=== PATIENT | female | born 1985 | race Caucasian/White ===

== ENCOUNTER 2021-12-31 20:02 | Emergency (ER) | payer OTHER, SELFPAY ==
[2021-12-31 20:34] VITALS: BP 153/78; PULSE 85; RESP 18; TEMP 36.7; O2SAT 99; BMI 36.2
--- NOTE | 2021-12-31 21:34 | ED_ITS ---
HPI - Abdominal Pain General Time Seen by Provider: 21:20 Date Seen: 12/31/21 Chief Complaint: Abdominal Pain Stated Complaint: Pancreatitis Time Seen by Provider: 12/31/21 20:37 Source: patient, family, RN notes reviewed and old records reviewed Mode of arrival: ambulatory Limitations: no limitations History of Present Illness HPI narrative: Patient is a very pleasant 36-year-old female who is 4 years status post gallbladder removal who comes to the emergency room with 3 episodes of abdominal pain very similar to her gallbladder attacks. Patient states that in the past 3 4 days she has had 4 gallbladder attacks 2 today. She knows she does not have a gallbladder but she states that is what it feels like. She has noticed increasing diarrhea but possibly over a month. She does not get a fever when this happens. She has not noticed any blood in her stool. She does state that when she had her gallbladder removed it was 3 weeks after delivering a child. She had had repeated gallbladder issues and known stones during the the last 2 trimesters of her . She notes that she did come in with a gallbladder attack and was sent to [facility] because she also needed an ERCP but an ERCP at that time noted no blockage. Patient has not experienced any unusual weight loss, fever. When this happens discomfort associated with vomiting and nausea and pallor persists for 20-30 minutes. She has tried to change her diet to reflect less fat but today she even had an attack with oatmeal. Related Data Previous Rx's Medication Instructions Recorded norgestimate 0.25 mg-ethinyl 1 tab PO QDAY #84 tabs 10/25/21 estradiol 35 mcg tablet (Estarylla) Allergies Allergy/AdvReac Type Severity Reaction Status Date / Time No Known Drug Allergies Allergy Verified 12/31/21 20:36 Review of Systems Status of ROS Reports: 10 or more systems reviewed and unremarkable except as noted in History and below Const Denies: fever, chills or fatigue Eyes Denies: change in vision ENMT Denies: throat pain, neck pain or difficulty swallowing Cardio Denies: chest pain or shortness of breath with exertion Resp Denies: shortness of breath or cough GI Denies: difficulty swallowing Denies: painful urination Musculo Denies: neck pain Neuro Denies: headache Psych Denies: anxiety Endo Denies: excessive urination or fatigue Exam Narrative: Exam Narrative: Tar is a very pleasant 36-year-old female in no acute distress. Face symmetrical, mentation normal. Neck is supple Heart with regular rate and rhythm and lungs are clear to auscultation. No CVA tenderness percussion Some slight tenderness noted in the right upper quadrant. No masses are palpated. Bowel sounds are present. Lower extremities without edema. Const: Vital Signs, click to edit/add: Vital Signs - 24 hr 12/31/21 20:34 Temperature 98.0 F Pulse Rate [Right Pulse Oximeter] 85 Respiratory Rate 18 Blood Pressure [Ri ght Upper Arm] 153/78 H Pulse Oximetry 99 Oxygen Delivery Me thod Room Air Documenting provider has reviewed patient's vital signs: yes Course Course Hospital Course: Patient will have IV placed Toradol, Zofran, and normal saline will be given. From intense purposes they feel like she is much better at this point but she still has some mild residual discomfort and nausea. CBC, comprehensive panel, CRP, lipase, amylase, urinalysis will be checked. Vital Signs Vital signs: Initial Vital Signs Temperature 98.0 F 12/31/21 20:34 Temperature Source Temporal Artery Scan 12/31/21 20:34 Pulse Rate 85 12/31/21 20:34 Respiratory Rate 18 12/31/21 20:34 Blood Pressure 153/78 H 12/31/21 20:34 Blood Pressure Mean 103 12/31/21 20:34 Blood Pressure Position Sitting 12/31/21 20:34 Pulse Oximetry 99 12/31/21 20:34 Oxygen Delivery Method 12/31/21 20:34 Vital Signs Temperature 98.0 F 12/31/21 20:34 Pulse Rate 85 12/31/21 20:34 Respiratory Rate 18 12/31/21 20:34 Blood Pressure 153/78 H 12/31/21 20:34 Pulse Oximetry 99 12/31/21 20:34 Oxygen Delivery Method 12/31/21 20:34 Temperature 98.0 F 12/31/21 20:34 Pulse Rate 85 12/31/21 20:34 Respiratory Rate 18 12/31/21 20:34 Blood Pressure 153/78 H 12/31/21 20:34 Pulse Oximetry 99 12/31/21 20:34 Oxygen Delivery Method 12/31/21 20:34 MDM - Abdominal Pain MDM Narrative Medical decision making narrative: 1. Abdominal pain-this could possibly be gastritis versus colitis. Patient does describe increasing diarrhea over quite some time. We talked about the possibility of colitis being viral verses autoimmune versus bacterial. Patient had near complete resolution of her symptoms prior to coming here. Toradol and Zofran have improved it further. In fact she is somewhat hungry right now. Recommend trial of gluten free diet as her sister has a gluten intolerance. Recommend pushing fluids as much as possible. I would avoid dairy at this time as well as any fatty foods. I would not subject patient to a CT at this time given her reassuring vital signs, exam as well as labs which include negative or normal white count and normal CRP. 2. Mild elevation of ALT and AST.-likely secondary to fatty liver. 3. Disposition-patient will be discharged home. I would like her to continue omeprazole 40 mg daily for 2 weeks. First dose given in the ED tonight. Will also give her Zofran 4 mg ODT to be used as needed for nausea. 10. Via [facility] P[facility] meds. Return to the ER seek medical attention for blood in stool worsening pain onset of fever for the onset of new symptoms such as abdominal bloating. Patient voices understanding. Note [place] and needed to clean it. is not sick at this time. No evidence of worms in stool. Medical Records Attestation: I reviewed the patient's medical records. Lab Data Attestation: I reviewed the patient's lab results. Labs: Lab Results 12/31/21 12/31/21 12/31/21 Range/Units 21:51 21:51 21:51 WBC 9.69 (4.50-11.00) K/uL RBC 3.94 L (4.00-5.20) m/uL Hgb 12.0 (12.0-16.0) gm/dL Hct 35.1 (33.0-51.0) % MCV 89 (80-100) fL MCH 31 (26-34) pg MCHC 34 (32-36) gm/dL RDW Coeff of Silvio 12.5 (11.5-15.5) % Plt Count 246 (140-440) K/uL Neut % (Auto) 72.8 H (42.0-72.0) % Lymph % (Auto) 19.5 L (20-44) % Antelope % (Auto) 6.4 (0.0-11.0) % Eos % (Auto) 0.5 (0.0-7.0) % Baso % (Auto) 0.2 (0.0-3.0) % Neut # (Auto) 7.10 H (1.7-7.0) K/uL Lymph # (Auto) 1.90 (0.90-2.90) K/uL Antelope # (Auto) 0.60 (0.00-0.90) K/UL Eos # (Auto) 0.05 (0.00-0.50) K/uL Baso # (Auto) 0.02 (0.00-0.30) K/uL Abs Immat Gran (auto) 0.06 (0.00-0.30) K/uL Sodium 137 (135-149) mmol/L Potassium 4.0 (3.6-5.1) mmol/L Chloride 102 (96-114) mmol/L Carbon Dioxide 28 (20-32) mmol/L BUN 11 (5-24) mg/dL Creatinine 0.6 (0.5-1.5) mg/dL Estimated Creat Clear 111.93 Estimated GFR 119 ml/min Glucose 101 (60-115) mg/dL Calcium 9.2 (8.4-10.6) mg/dL Total Bilirubin 0.6 (0.1-1.5) mg/dL AST 77 H (12-35) U/L ALT 46 H (4-35) U/L Alkaline Phosphatase 72 (40-150) U/L C-Reactive Protein 0.6 (0.5-1.0) mg/dL Total Protein 7.6 (6.0-8.3) g/dL Albumin 4.5 (3.3-5.0) g/dL Amylase 75 (18-89) U/L Lipase 58 (23-300) U/L Urine Color Yellow (Yellow) Urine Appearance Clear (Clear) Urine pH 6.0 (5.0-8.5) Ur Specific [place] 1.010 (1.000-1.030) Urine Protein Negative (Negative) Urine Glucose (UA) Negative (Negative) Urine Ketones Negative (Negative) Urine Blood Negative (Negative) Urine Nitrite Negative (Negative) Urine Bilirubin Negative (Negative) Urine Urobilinogen 0.2 (0.2-1.0) Ur Leukocyte Esterase Negative (Negative) Urine RBC 0-2 (0-2) Urine WBC 0-2 (0-5) Ur Squamous Epith Cells Few (None-Few) Urine Bacteria Few A (None) Discharge Plan Discharge Clinical Impression: Abdominal pain Patient Disposition: Home, Self-Care Condition: Improved Additional Instructions: Recommend a trial gluten free. Omeprazole 40 mg daily for 2 weeks. Dose was given tonight. Zofran as needed for nausea. Given via instant meds. Push fluids and bland foods. Seek medical attention or return to the emergency room for blood in stool, fever, increasing and more frequent pain and as needed. Prescriptions: No Action norgestimate-ethinyl estradiol [Estarylla] 0.25-35 mg-mcg tablet 1 tab PO QDAY Qty: 84 0RF Follow Up/Referrals: Veronica William PHARMACY SALES ASSISTANT [Primary Care Provider] - Stand Alone Forms: [email or web address] Info Instructions
[2021-12-31 22:30] LABS: Basophils Absolute Auto 0.02 K/uL (0.00-0.30); Basophils Percent Auto 0.2 % (0.0-3.0); Eosinophils Absolute Auto 0.05 K/uL (0.00-0.50); Eosinophils Percent Auto 0.5 % (0.0-7.0); Hematocrit 35.1 % (33.0-51.0); Immature Granulocytes Abs Auto 0.06 K/uL (0.00-0.30); Lymphocytes Percent Auto 19.5 % (20-44); Mean Corpuscular HGB Conc 34 gm/dL (32-36); Mean Corpuscular Hemoglobin 31 pg (26-34); Mean Corpuscular Volume 89 fL (80-100); Monocytes Percent Auto 6.4 % (0.0-11.0); Neutrophils Percent Auto 72.8 % (42.0-72.0); Platelet Count* 246 K/uL (140-440); RDW Coefficient of Variation % 12.5 % (11.5-15.5); Red Blood Count 3.94 m/uL (4.00-5.20); White Blood Count* 9.69 K/uL (4.50-11.00)
[2021-12-31 22:36] LABS: Appearance Urine Clear (Clear); Bilirubin Urine Negative (Negative); Blood Urine Negative (Negative); Color Urine Yellow (Yellow); Glucose Urine Negative (Negative); Ketones Urine Negative (Negative); Leukocyte Esterase Urine Negative (Negative); Nitrite Urine Negative (Negative); Protein Urine Negative (Negative); Urobilinogen Urine 0.2 (0.2-1.0)
[2021-12-31 22:41] LABS: Albumin* 4.5 g/dL (3.3-5.0); Chloride* 102 mmol/L (96-114)
[2021-12-31 22:42] LABS: Sodium* 137 mmol/L (135-149)
[2021-12-31 22:44] LABS: Amylase* 75 U/L (18-89); Bacteria Urine Few; Creatinine* 0.6 mg/dL (0.5-1.5); Est. Creatinine Clearance* 111.93; Estimated Glomerular Filt Rate 119 ml/min; RBC Urine 0-2 (0-2); Squamous Epithelial Cell Urine Few (None-Few); WBC Urine 0-2 (0-5)
[2021-12-31 22:45] LABS: Alanine Aminotransferase* 46 U/L (4-35); Alkaline Phosphatase* 72 U/L (40-150); Aspartate Amino Transferase* 77 U/L (12-35); Bilirubin Total* 0.6 mg/dL (0.1-1.5); Blood Urea Nitrogen* 11 mg/dL (5-24); Calcium* 9.2 mg/dL (8.4-10.6); Carbon Dioxide* 28 mmol/L (20-32); Glucose* 101 mg/dL (60-115); Lipase* 58 U/L (23-300); Total Protein* 7.6 g/dL (6.0-8.3)
[2021-12-31 22:48] LABS: C Reactive Protein* 0.6 mg/dL (0.5-1.0)
[2021-12-31 22:57] LABS: Slide Review Reflex No
[2021-12-31] MEDS: OMEPRAZOLE 20 MG CAPSULE DR 40 MG PO (23:28)
[2021-12-31 23:30] VITALS: BP 135/78; PULSE 79; RESP 18; TEMP 36.7; O2SAT 99
[2021-12-31 23:45] VITALS: BP 135/78; PULSE 79; RESP 18; TEMP 36.7; O2SAT 99
== END 2021-12-31 23:45 | disposition home or self-care (01) ==
PROVIDERS: Emergency Provider Family Medicine; PCP Nurse Practitioner Family
DX: R10.9 Unspecified abdominal pain (principal); R74.01 Elevation of levels of liver transaminase levels
CPT/HCPCS: 36415; 80053; 81001; 82150; 83690; 85025; 86140; 87086; 94761; 99284; A9270